=== PATIENT | male | born 1960 | race Caucasian/White ===

== ENCOUNTER 2017-11-09 07:30 | Inpatient (IN) | payer OTHER ==
[~2017-11-09] VITALS: Ht 170.2 cm; Wt 78.3 kg
[2017-11-09 08:42] LABS: Basophils # (auto) 0 uL; Basophils % (auto) 0.5 % (0.0-2.0); Eosinophils # (auto) 0.1 uL; Eosinophils % (auto) 1.7 % (0.0-7.0); Hematocrit 38.2 % (41.0-53.0); Lymphocytes % (auto) 29.4 % (10.0-50.0); Mean Corpuscular Hemoglobin 28.5 pg (28.0-32.0); Mean Corpuscular Hgb Conc. 33.9 g/dL (32.0-36.0); Monocytes # (auto) 0.5 uL; Monocytes % (auto) 7.7 % (0.0-12.0); Neutrophils # (auto) 4.2 uL; Neutrophils % (auto) 60.7 % (37.0-80.0); Nucleated Red Blood Cells % 0.1 %; Platelet Count (auto) 295 10^3/uL (140-450); Red Blood Cells 4.55 10^6/uL (4.5-5.90); Red Cell Distribution Width 13.7 % (11.8-14.3); White Blood Cell 6.9 10^3/uL (4.4-10.8)
[2017-11-09 09:00] LABS: Alanine Aminotransferase 26 U/L (16-61); Albumin 3.6 g/dL (3.4-5.0); Alkaline Phosphatase 86 U/L (45-117); Anion Gap 12 (5-15); Aspartate Aminotransferase 13 U/L (15-37); BUN/Creatinine Ratio 27.3; Bilirubin, Total 0.4 mg/dL (0.2-1.0); Blood Urea Nitrogen 21 mg/dL (7-18); Carbon Dioxide 24 mmol/L (21-32); Chloride 105 mmol/L (98-107); GFR African American 134 mL/min; GFR Non-African American 111 mL/min; Glucose 141 mg/dL (74-106); Potassium 3.8 mmol/L (3.5-5.1); Sodium 141 mmol/L (136-145); Total Protein 7.9 g/dL (6.4-8.2)
[2017-11-09] MEDS ORDERED: ONDANSETRON HCL 4 MG/2 ML VIAL IV ONE (09:15)
[2017-11-09] MEDS ORDERED: MORPHINE SULFATE 4 MG/ML SYR/VIAL IV ONE (09:15)
[2017-11-09] MEDS ORDERED: CLOP75TA41 PO (09:25)
[2017-11-09] MEDS ORDERED: DULO60CA PO (09:25)
[2017-11-09] MEDS ORDERED: AMLO10TA2 PO (09:25)
[2017-11-09] MEDS ORDERED: ISOS60TA24 PO (09:25)
[2017-11-09] MEDS ORDERED: CARV3.1240 PO (09:25)
[2017-11-09] MEDS ORDERED: METF-372 PO (09:25)
[2017-11-09] MEDS ORDERED: ASPI81CH43 PO (09:25)
[2017-11-09] MEDS ORDERED: ATOR40TA52 PO (09:25)
[2017-11-09] MEDS ORDERED: GLIP-116 PO (09:25)
[2017-11-09] MEDS ORDERED: LISI40TA PO (09:25)
[2017-11-09 09:48] LABS: INR 0.95 (0.9-1.15); Partial Thromboplastin Time 26.8 sec (22.64-33.71); Prothrombin Time 10.3 sec (9.37-12.3)
[2017-11-09] MEDS ORDERED: IOHEXOL 350 MG/ML 100ML IJ ONE (10:23)
[2017-11-09] MEDS ORDERED: MORPHINE SULFATE 4 MG/ML SYR/VIAL IV PRN (12:30)
[2017-11-09] MEDS ORDERED: NITROGLYCERIN 0.4 MG SL TAB SL PRN (12:30)
[2017-11-09] MEDS ORDERED: METOPROLOL TARTRATE 25 MG TAB PO ONE (13:30)
[2017-11-09] MEDS ORDERED: LISINOPRIL 5 MG TAB PO ONE (13:30)
[2017-11-09 16:19] VITALS: BP 132/73
[2017-11-09 16:31] VITALS: BP 132/73
[2017-11-09] MEDS: RIVAROXABAN 15 MG TAB PO SCH (18:52)
[2017-11-09 21:57] VITALS: BP 119/67
[2017-11-09] MEDS: METOPROLOL TARTRATE 25 MG TAB PO SCH (22:18)
[2017-11-10 04:37] VITALS: BP 163/98
[2017-11-10 05:21] VITALS: BP 133/69
[2017-11-10] MEDS: HYDROcodone-ACET 10/325MG TAB PO PRN ×3 (05:37→15:31)
[2017-11-10 08:00] VITALS: BP 157/77
[2017-11-10 09:00] VITALS: BP 157/77
[2017-11-10] MEDS ORDERED: LISINOPRIL 5 MG TAB PO SCH (10:00)
[2017-11-10] MEDS: ASPirin 81 mg TAB PO SCH (10:12)
[2017-11-10] MEDS: METOPROLOL TARTRATE 25 MG TAB PO SCH ×2 (10:13→22:13)
[2017-11-10 13:00] VITALS: BP 153/77
[2017-11-10] MEDS: RIVAROXABAN 15 MG TAB PO SCH (18:30)
[2017-11-10 22:00] VITALS: BP 161/82
[2017-11-10] MEDS ORDERED: DORZOLAMIDE HCL 2% OPTH(EYE) SOL 10ML EACHEYE SCH (22:00)
[2017-11-10] MEDS ORDERED: BRIMONIDINE 0.2% OPTH Soln 5ml EACHEYE SCH (22:00)
[2017-11-10] MEDS ORDERED: LATANOPROST 0.005 % OPTH(EYE) SOL 2.5ML EACHEYE SCH (22:00)
[2017-11-10] MEDS: ATORVASTATIN 20 MG TAB PO SCH (22:13)
[2017-11-11 05:00] VITALS: BP 144/77
[2017-11-11] MEDS ORDERED: ISOSORBIDE DINITRATE 10 MG TAB PO SCH (06:00)
[2017-11-11 09:00] VITALS: BP 121/63
[2017-11-11] MEDS ORDERED: SERTRALINE HCL 50 MG TAB PO SCH (10:00)
[2017-11-11] MEDS: METOPROLOL TARTRATE 25 MG TAB PO SCH ×2 (10:48→21:06)
[2017-11-11] MEDS: LISINOPRIL 5 MG TAB PO SCH (10:48)
[2017-11-11] MEDS: ASPirin 81 mg TAB PO SCH (10:48)
[2017-11-11] MEDS: PANTOPRAZOLE 40 MG TAB PO SCH (10:49)
[2017-11-11] MEDS: HYDROcodone-ACET 10/325MG TAB PO PRN ×2 (10:59→21:06)
[2017-11-11 13:00] VITALS: BP 154/78
[2017-11-11 17:00] VITALS: BP 130/74
[2017-11-11] MEDS: ATORVASTATIN 20 MG TAB PO SCH (21:04)
[2017-11-11 23:07] VITALS: BP 146/122
[2017-11-12 05:05] VITALS: BP 152/74
[2017-11-12 08:34] VITALS: BP 142/80
[2017-11-12] MEDS ORDERED: ADENOSINE 66 MG in GIVE UN-DILUTED 0 ML IV ONE (10:00)
[2017-11-12] MEDS: PANTOPRAZOLE 40 MG TAB PO SCH (12:02)
[2017-11-12] MEDS: ASPirin 81 mg TAB PO SCH (12:03)
[2017-11-12] MEDS: LISINOPRIL 5 MG TAB PO SCH (12:04)
[2017-11-12] MEDS: METOPROLOL TARTRATE 25 MG TAB PO SCH ×2 (12:04→21:06)
[2017-11-12] MEDS: HYDROcodone-ACET 10/325MG TAB PO PRN ×2 (12:05→21:06)
[2017-11-12 12:40] VITALS: BP 129/81
[2017-11-12 16:48] VITALS: BP 134/62
[2017-11-12] MEDS: ATORVASTATIN 20 MG TAB PO SCH (21:06)
[2017-11-12 21:25] VITALS: BP 149/82
[2017-11-13 05:12] VITALS: BP 122/64
[2017-11-13] MEDS: HYDROcodone-ACET 10/325MG TAB PO PRN (05:15)
[2017-11-13 08:00] VITALS: BP 131/71
[2017-11-13 08:58] VITALS: BP 131/71
[2017-11-13] MEDS: METOPROLOL TARTRATE 25 MG TAB PO SCH (10:00)
[2017-11-13] MEDS: ASPirin 81 mg TAB PO SCH (10:08)
[2017-11-13] MEDS: LISINOPRIL 5 MG TAB PO SCH (10:09)
[2017-11-13] MEDS: PANTOPRAZOLE 40 MG TAB PO SCH (10:09)
[2017-11-13 13:00] VITALS: BP 132/74
[2017-11-13 14:07] VITALS: BP 132/74
== END 2017-11-13 16:22 | disposition home or self-care (01) | DRG 303 ==
LOC: ER 07:30 → TELE 07:31 → TELE-E-ADS 15:29 → EAST 11-10 00:25 → TELE-E-ADS 11-12 01:03
PROVIDERS: ADMIT Internal Medicine; ATTEND Internal Medicine
DX: I25.10 Atherosclerotic heart disease of native coronary artery without angina pectoris (principal); E11.9 Type 2 diabetes mellitus without complications; E78.00 Pure hypercholesterolemia, unspecified; I10 Essential (primary) hypertension; Z86.73 Personal history of transient ischemic attack (TIA), and cerebral infarction without residual deficits; I25.2 Old myocardial infarction; Z79.4 Long term (current) use of insulin; Z95.5 Presence of coronary angioplasty implant and graft
CPT/HCPCS: 36415; 71046; 71275; 80053; 84484; 85025; 85379; 85610; 85730; 93005; 93017; 93970; 94761; 96374; 96375; J0153; J2405

== ENCOUNTER 2017-12-02 16:08 | Inpatient (IN) | payer OTHER ==
[~2017-12-02] VITALS: Ht 162.6 cm; Wt 68.0 kg
[~2017-12-02 16:08] MED LIST: AMLO10TA2 PO; ASPI81CH43 PO; ATOR40TA52 PO; CARV3.1240 PO; CLOP75TA41 PO; DULO60CA PO; GLIP-116 PO; ISOS60TA24 PO; LISI40TA PO; METF-372 PO
[2017-12-02] MEDS ORDERED: SODIUM CHLORIDE 0.9% 1,000 ML IV ONE (16:25)
[2017-12-02] MEDS ORDERED: ONDANSETRON HCL 4 MG/2 ML VIAL IV ONE (16:30)
[2017-12-02] MEDS ORDERED: MORPHINE SULFATE 8mg/ml INJ SDV IV ONE (16:30)
[2017-12-02 17:11] LABS: Basophils # (auto) 0.1 uL; Basophils % (auto) 0.8 % (0.0-2.0); Eosinophils # (auto) 0.2 uL; Eosinophils % (auto) 2.7 % (0.0-7.0); Hematocrit 37.1 % (41.0-53.0); Hemoglobin 12.5 g/dL (13.5-17.5); Lymphocytes # (auto) 2.5 uL; Lymphocytes % (auto) 29.8 % (10.0-50.0); Mean Corpuscular Hemoglobin 28.3 pg (28.0-32.0); Mean Corpuscular Hgb Conc. 33.8 g/dL (32.0-36.0); Mean Corpuscular Volume 83.7 fL (80.0-100.0); Monocytes # (auto) 0.7 uL; Neutrophils % (auto) 58.7 % (37.0-80.0); Nucleated Red Blood Cells % 0.1 %; Platelet Count (auto) 292 10^3/uL (140-450); Red Blood Cells 4.43 10^6/uL (4.5-5.90); Red Cell Distribution Width 14.1 % (11.8-14.3); White Blood Cell 8.5 10^3/uL (4.4-10.8)
[2017-12-02] MEDS ORDERED: HYDROmorphone HCL 2 MG/ML VL IV ONE (17:15)
[2017-12-02 17:28] LABS: Alanine Aminotransferase 26 U/L (16-61); Albumin 3.5 g/dL (3.4-5.0); Anion Gap 10 (5-15); Aspartate Aminotransferase 11 U/L (15-37); BUN/Creatinine Ratio 21.4; Blood Urea Nitrogen 18 mg/dL (7-18); Calcium 8.9 mg/dL (8.5-10.1); Carbon Dioxide 24 mmol/L (21-32); Chloride 107 mmol/L (98-107); GFR African American 122 mL/min; GFR Non-African American 100 mL/min; Glucose 145 mg/dL (74-106); Sodium 141 mmol/L (136-145)
[2017-12-02 17:31] LABS: INR 0.91 (0.9-1.15); Partial Thromboplastin Time 28.3 sec (23.78-33.04); Prothrombin Time 9.8 sec (9.27-12.13)
[2017-12-02 17:33] LABS: Alkaline Phosphatase 86 U/L (45-117); Bilirubin, Total 0.2 mg/dL (0.2-1.0)
[2017-12-02] MEDS ORDERED: MORPHINE SULFATE 8mg/ml INJ SDV IV PRN (19:30)
[2017-12-02] MEDS ORDERED: ZOLPIDEM TARTRATE 5 MG TAB PO PRN (19:30)
[2017-12-02] MEDS ORDERED: ONDANSETRON HCL 4 MG/2 ML VIAL IV PRN (19:30)
[2017-12-02] MEDS: CARVEDILOL 3.125 MG TAB PO SCH (22:00)
[2017-12-02 22:46] VITALS: BP 161/75
[2017-12-02] MEDS: HYDROmorphone HCL 2 MG/ML VL IV PRN (23:18)
[2017-12-02 23:38] VITALS: BP 169/71
[2017-12-03 05:00] VITALS: BP 144/83
[2017-12-03] MEDS: HYDROmorphone HCL 2 MG/ML VL IV PRN (08:48)
[2017-12-03 08:53] VITALS: BP 148/86
[2017-12-03] MEDS ORDERED: DEXTROSE (50%) 50ML SYRG IV PRN (09:00)
[2017-12-03] MEDS: CLOPIDOGREL BISULFATE 75 MG TAB PO SCH (10:44)
[2017-12-03] MEDS: ISOSORBIDE MONONITRATE 60 MG TAB PO SCH (10:45)
[2017-12-03] MEDS: amLODIPine BESYLATE 5 MG TAB PO SCH (10:46)
[2017-12-03] MEDS: CARVEDILOL 3.125 MG TAB PO SCH ×2 (10:47→21:47)
[2017-12-03] MEDS: ASPirin 81 mg TAB PO SCH (10:48)
[2017-12-03] MEDS: LISINOPRIL 20 MG TAB PO SCH (10:48)
[2017-12-03] MEDS: DULoxetine HCL 30 MG CAP PO SCH (10:49)
[2017-12-03] MEDS: NITROGLYCERIN 2% OINT 1GM PKG TD SCH (10:50)
[2017-12-03 11:52] VITALS: BP 169/81
[2017-12-03] MEDS: InsuLIN REG 1unit/0.01ml Soln (100units/ml) SC SCH ×2 (12:13→21:46)
[2017-12-03] MEDS: ACCU-CHEK COMFORT CURVE STRIP VI SCH ×2 (12:13→21:46)
[2017-12-03] MEDS: NITROGLYCERIN 0.4 MG SL TAB SL PRN ×3 (13:59→14:09)
[2017-12-03] MEDS: CYCLOBENZAPRINE HCL 10 MG TAB PO SCH ×2 (14:06→21:46)
[2017-12-03 17:24] VITALS: BP 147/79
[2017-12-03] MEDS: traMADol HCL 50 MG TAB PO PRN (17:32)
[2017-12-03 20:00] VITALS: BP 139/67
[2017-12-04 04:54] VITALS: BP 154/82
[2017-12-04] MEDS: CYCLOBENZAPRINE HCL 10 MG TAB PO SCH ×2 (05:50→14:37)
[2017-12-04] MEDS: traMADol HCL 50 MG TAB PO PRN (05:56)
[2017-12-04 09:41] VITALS: BP 147/85
[2017-12-04] MEDS: NITROGLYCERIN 2% OINT 1GM PKG TD SCH (11:11)
[2017-12-04] MEDS: DULoxetine HCL 30 MG CAP PO SCH (11:12)
[2017-12-04] MEDS: ISOSORBIDE MONONITRATE 60 MG TAB PO SCH (11:12)
[2017-12-04] MEDS: amLODIPine BESYLATE 5 MG TAB PO SCH (11:13)
[2017-12-04] MEDS: CARVEDILOL 3.125 MG TAB PO SCH (11:13)
[2017-12-04] MEDS: LISINOPRIL 20 MG TAB PO SCH (11:14)
[2017-12-04] MEDS: CLOPIDOGREL BISULFATE 75 MG TAB PO SCH (11:14)
[2017-12-04] MEDS: ASPirin 81 mg TAB PO SCH (11:14)
[2017-12-04] MEDS: ACCU-CHEK COMFORT CURVE STRIP VI SCH (11:58)
[2017-12-04] MEDS: InsuLIN REG 1unit/0.01ml Soln (100units/ml) SC SCH (13:09)
[2017-12-04 13:23] VITALS: BP 146/73
== END 2017-12-04 16:00 | DRG 303 ==
LOC: EDUNIT# 16:08 → ER 16:08 → EDBD 16:08 → TELE 16:09 → EEVIPCON 16:09 → TELE-E-ADS 21:47
PROVIDERS: ADMIT Internal Medicine; ATTEND Internal Medicine
DX: I25.110 Atherosclerotic heart disease of native coronary artery with unstable angina pectoris (principal); I25.2 Old myocardial infarction; E11.9 Type 2 diabetes mellitus without complications; E78.00 Pure hypercholesterolemia, unspecified; I49.3 Ventricular premature depolarization; F32.9 Major depressive disorder, single episode, unspecified; F10.20 Alcohol dependence, uncomplicated; I10 Essential (primary) hypertension; Z79.4 Long term (current) use of insulin; Z86.73 Personal history of transient ischemic attack (TIA), and cerebral infarction without residual deficits; Z95.5 Presence of coronary angioplasty implant and graft; Z88.5 Allergy status to narcotic agent; Z79.899 Other long term (current) drug therapy; Z90.49 Acquired absence of other specified parts of digestive tract; Z90.89 Acquired absence of other organs
CPT/HCPCS: 36415; 71045; 80053; 82962; 83735; 83880; 84484; 85025; 85610; 85730; 87081; 93005; 94761; 96361; 96374; 96375; J1815; J2405

== ENCOUNTER 2018-04-10 13:02 | Inpatient (IN) | payer OTHER ==
[~2018-04-10] VITALS: Ht 167.6 cm; Wt 72.8 kg
[~2018-04-10 13:02] MED LIST changes: +AMLO10TA12 PO; -AMLO10TA2 PO
[2018-04-10] MEDS ORDERED: SODIUM CHLORIDE 0.9% 1,000 ML IV ONE (13:10)
[2018-04-10] MEDS ORDERED: ASPirin 81 mg TAB PO ONE (13:15)
[2018-04-10] MEDS ORDERED: NITROGLYCERIN 0.4 MG SL TAB SL ONE (13:15)
[2018-04-10] MEDS ORDERED: ONDANSETRON HCL 4 MG/2 ML VIAL IV ONE (13:15)
[2018-04-10 14:29] LABS: Basophils # (auto) 0 uL; Basophils % (auto) 0.5 % (0.0-2.0); Eosinophils # (auto) 0.1 uL; Eosinophils % (auto) 1.4 % (0.0-7.0); Hematocrit 41.3 % (41.0-53.0); Hemoglobin 13.5 g/dL (13.5-17.5); Lymphocytes # (auto) 2.5 uL; Lymphocytes % (auto) 32.7 % (10.0-50.0); Mean Corpuscular Hemoglobin 27.8 pg (28.0-32.0); Mean Corpuscular Hgb Conc. 32.7 g/dL (32.0-36.0); Monocytes # (auto) 0.6 uL; Monocytes % (auto) 8.2 % (0.0-12.0); Neutrophils # (auto) 4.5 uL; Neutrophils % (auto) 57.2 % (37.0-80.0); Nucleated Red Blood Cells % 0.1 %; Platelet Count (auto) 275 10^3/uL (140-450); Red Blood Cells 4.85 10^6/uL (4.5-5.90); Red Cell Distribution Width 14.4 % (11.8-14.3); White Blood Cell 7.8 10^3/uL (4.4-10.8)
[2018-04-10 14:42] LABS: INR 0.94 (0.9-1.15); Partial Thromboplastin Time 28.5 sec (23.78-33.04); Prothrombin Time 10.1 sec (9.27-12.13)
[2018-04-10 14:45] LABS: Albumin 3.5 g/dL (3.4-5.0); Anion Gap 9 (5-15); Blood Urea Nitrogen 15 mg/dL (7-18); Carbon Dioxide 23 mmol/L (21-32); Chloride 112 mmol/L (98-107); Potassium 3.9 mmol/L (3.5-5.1); Sodium 144 mmol/L (136-145)
[2018-04-10 14:48] LABS: Alanine Aminotransferase 32 U/L (16-61); Aspartate Aminotransferase 15 U/L (15-37); BUN/Creatinine Ratio 18.8; Bilirubin, Total 0.2 mg/dL (0.2-1.0); Calcium 8.5 mg/dL (8.5-10.1); GFR African American 128 mL/min; GFR Non-African American 106 mL/min; Total Protein 7.7 g/dL (6.4-8.2)
[2018-04-10 14:51] LABS: Alkaline Phosphatase 86 U/L (45-117)
[2018-04-10 15:26] LABS: Glucose 49 mg/dL (74-106)
[2018-04-10] MEDS: MORPHINE SULFATE 4 MG/ML SYR/VIAL IV PRN ×2 (15:49→20:38)
[2018-04-10] MEDS ORDERED: MORPHINE SULFATE 4 MG/ML SYR/VIAL IV PRN (17:30)
[2018-04-10] MEDS ORDERED: DEXTROSE (50%) 50ML SYRG IV PRN (17:45)
[2018-04-10] MEDS: InsuLIN REG 1unit/0.01ml Soln (100units/ml) SC SCH (18:00)
[2018-04-10] MEDS: ACCU-CHEK COMFORT CURVE STRIP VI SCH (18:14)
[2018-04-10 20:03] VITALS: BP 163/84
[2018-04-10 20:48] VITALS: BP 163/84
[2018-04-10 21:42] VITALS: BP 163/83
[2018-04-11] VITALS (7 sets, daily range): BP systolic 133–160; BP diastolic 66–94
[2018-04-11] MEDS: MORPHINE SULFATE 4 MG/ML SYR/VIAL IV PRN ×4 (00:32→17:24)
[2018-04-11] MEDS: ACCU-CHEK COMFORT CURVE STRIP VI SCH ×5 (05:59→23:17)
[2018-04-11] MEDS: InsuLIN REG 1unit/0.01ml Soln (100units/ml) SC SCH ×5 (06:00→23:18)
[2018-04-11] MEDS ORDERED: ADENOSINE 61 MG in GIVE UN-DILUTED 0 ML IV STA (08:28)
[2018-04-11] MEDS: DULoxetine HCL 30 MG CAP PO SCH (08:46)
[2018-04-11] MEDS: PANTOPRAZOLE 40 MG TAB PO SCH (08:47)
[2018-04-11] MEDS: ASPirin 81 mg TAB PO SCH (08:47)
[2018-04-11] MEDS: OXcarbazepine 300 MG TAB PO SCH ×2 (08:47→21:59)
[2018-04-11] MEDS: CLOPIDOGREL BISULFATE 75 MG TAB PO SCH (08:47)
[2018-04-11] MEDS: ISOSORBIDE MONONITRATE 60 MG TAB PO SCH (08:48)
[2018-04-11] MEDS: CARVEDILOL 3.125 MG TAB PO SCH ×3 (09:36→21:59)
[2018-04-11] MEDS ORDERED: BARIUM SULFATE 98% 340 GM PWDR ONE (09:36)
[2018-04-11] MEDS ORDERED: EZ-GAS II GRANULES (RADIOLOGY USE) PO ONE (09:50)
[2018-04-11] MEDS: amLODIPine BESYLATE 5 MG TAB PO SCH (10:00)
[2018-04-11] MEDS: glipiZIDE 5 MG TAB PO SCH (17:32)
[2018-04-11] MEDS: metFORMIN HYDROCHLORIDE 500 MG TAB PO SCH (17:33)
[2018-04-11] MEDS ORDERED: ATORVASTATIN 20 MG TAB PO SCH (22:00)
[2018-04-11] MEDS ORDERED: traZODone HCL 50 MG TAB PO SCH (22:00)
[2018-04-11] MEDS: NITROGLYCERIN 0.4 MG SL TAB SL PRN ×2 (23:12→23:20)
[2018-04-12] MEDS: NITROGLYCERIN 0.4 MG SL TAB SL PRN (00:10)
[2018-04-12] MEDS: MORPHINE SULFATE 4 MG/ML SYR/VIAL IV PRN (00:32)
[2018-04-12 05:00] VITALS: BP 107/71
[2018-04-12] MEDS: InsuLIN REG 1unit/0.01ml Soln (100units/ml) SC SCH (06:00)
[2018-04-12] MEDS: ACCU-CHEK COMFORT CURVE STRIP VI SCH (06:44)
[2018-04-12] MEDS: metFORMIN HYDROCHLORIDE 500 MG TAB PO SCH (07:00)
[2018-04-12] MEDS: glipiZIDE 5 MG TAB PO SCH (07:20)
[2018-04-12 08:33] VITALS: BP 105/69
[2018-04-12 09:00] VITALS: BP 156/84
[2018-04-12] MEDS: ISOSORBIDE MONONITRATE 60 MG TAB PO SCH (10:00)
[2018-04-12] MEDS: CLOPIDOGREL BISULFATE 75 MG TAB PO SCH (10:00)
[2018-04-12] MEDS: amLODIPine BESYLATE 5 MG TAB PO SCH (10:00)
[2018-04-12] MEDS: ASPirin 81 mg TAB PO SCH (10:00)
[2018-04-12] MEDS: PANTOPRAZOLE 40 MG TAB PO SCH (10:00)
[2018-04-12] MEDS: CARVEDILOL 3.125 MG TAB PO SCH (10:00)
[2018-04-12] MEDS: OXcarbazepine 300 MG TAB PO SCH (10:00)
[2018-04-12] MEDS: DULoxetine HCL 30 MG CAP PO SCH (10:00)
== END 2018-04-12 10:15 | DRG 206 ==
LOC: EDBD 13:02 → EEVIPCON 13:05 → ER 13:05 → TELE 13:06 → TELE-E-ADS 19:15
PROVIDERS: ADMIT Internal Medicine; ATTEND Internal Medicine
DX: M94.0 Chondrocostal junction syndrome [Tietze] (principal); I25.10 Atherosclerotic heart disease of native coronary artery without angina pectoris; I48.91 Unspecified atrial fibrillation; E11.9 Type 2 diabetes mellitus without complications; E78.00 Pure hypercholesterolemia, unspecified; I10 Essential (primary) hypertension; I25.2 Old myocardial infarction; Z86.73 Personal history of transient ischemic attack (TIA), and cerebral infarction without residual deficits; Z79.4 Long term (current) use of insulin; I70.0 Atherosclerosis of aorta; Z90.49 Acquired absence of other specified parts of digestive tract; Z95.5 Presence of coronary angioplasty implant and graft; F32.9 Major depressive disorder, single episode, unspecified; Z99.3 Dependence on wheelchair; Z88.6 Allergy status to analgesic agent; Z79.82 Long term (current) use of aspirin; Z79.899 Other long term (current) drug therapy; F17.210 Nicotine dependence, cigarettes, uncomplicated
CPT/HCPCS: 36415; 71045; 74247; 78452; 80053; 82962; 83880; 84484; 85025; 85610; 85730; 87081; 93005; 93017; 96374; 96375; J0153; J1815; J2405

== ENCOUNTER 2018-04-13 19:11 | Emergency (ER) | payer OTHER ==
[~2018-04-13] VITALS: Ht 172.7 cm; Wt 68.0 kg
[~2018-04-13 19:11] MED LIST changes: -METF-372 PO
[2018-04-13 19:57] LABS: Basophils # (auto) 0 uL; Basophils % (auto) 0.8 % (0.0-2.0); Eosinophils # (auto) 0.1 uL; Eosinophils % (auto) 1.9 % (0.0-7.0); Hematocrit 38.2 % (41.0-53.0); Hemoglobin 12.8 g/dL (13.5-17.5); Lymphocytes # (auto) 2.9 uL; Lymphocytes % (auto) 44.5 % (10.0-50.0); Mean Corpuscular Hemoglobin 27.8 pg (28.0-32.0); Mean Corpuscular Hgb Conc. 33.4 g/dL (32.0-36.0); Mean Corpuscular Volume 83.3 fL (80.0-100.0); Monocytes # (auto) 0.5 uL; Monocytes % (auto) 8.1 % (0.0-12.0); Neutrophils # (auto) 2.9 uL; Neutrophils % (auto) 44.7 % (37.0-80.0); Nucleated Red Blood Cells % 0.1 %; Platelet Count (auto) 281 10^3/uL (140-450); Red Blood Cells 4.59 10^6/uL (4.5-5.90); Red Cell Distribution Width 14.5 % (11.8-14.3); White Blood Cell 6.4 10^3/uL (4.4-10.8)
[2018-04-13 20:14] LABS: Albumin 3.5 g/dL (3.4-5.0); Anion Gap 8 (5-15); BUN/Creatinine Ratio 23.6; Blood Urea Nitrogen 17 mg/dL (7-18); Calcium 8.5 mg/dL (8.5-10.1); Carbon Dioxide 24 mmol/L (21-32); Chloride 112 mmol/L (98-107); GFR African American 145 mL/min; GFR Non-African American 120 mL/min; Glucose 68 mg/dL (74-106); Magnesium 2.1 mg/dL (1.6-2.6); Potassium 3.6 mmol/L (3.5-5.1); Sodium 144 mmol/L (136-145)
[2018-04-13 20:26] LABS: Alanine Aminotransferase 24 U/L (16-61); Alkaline Phosphatase 79 U/L (45-117); Aspartate Aminotransferase 11 U/L (15-37); Bilirubin, Total 0.2 mg/dL (0.2-1.0); Total Protein 7.3 g/dL (6.4-8.2)
[2018-04-13 21:40] VITALS: BP 138/76
== END 2018-04-13 21:45 | disposition home or self-care (01) ==
LOC: EEVIPCON 19:11 → EDBD 19:11 → EDSEX 19:11 → ER 19:11
DX: R07.89 Other chest pain (principal); E11.9 Type 2 diabetes mellitus without complications; I25.2 Old myocardial infarction; I10 Essential (primary) hypertension; F17.210 Nicotine dependence, cigarettes, uncomplicated; Z88.6 Allergy status to analgesic agent; Z79.899 Other long term (current) drug therapy
CPT/HCPCS: 36415; 71045; 80053; 83735; 84484; 85025; 93005; 94761

== ENCOUNTER 2018-07-29 14:58 | Emergency (ER) | payer OTHER ==
[~2018-07-29] VITALS: Ht 175.3 cm; Wt 68.0 kg
[2018-07-29 16:31] LABS: Basophils # (auto) 0.1 uL; Eosinophils # (auto) 0.7 uL; Eosinophils % (auto) 10.2 % (0.0-7.0); Hematocrit 36.3 % (41.0-53.0); Lymphocytes # (auto) 2.1 uL; Lymphocytes % (auto) 29.6 % (10.0-50.0); Mean Corpuscular Hemoglobin 28.2 pg (28.0-32.0); Mean Corpuscular Hgb Conc. 33.1 g/dL (32.0-36.0); Mean Corpuscular Volume 85.2 fL (80.0-100.0); Monocytes # (auto) 0.6 uL; Monocytes % (auto) 9.1 % (0.0-12.0); Neutrophils # (auto) 3.5 uL; Neutrophils % (auto) 50.1 % (37.0-80.0); Platelet Count (auto) 267 10^3/uL (140-450); Red Blood Cells 4.25 10^6/uL (4.5-5.90); Red Cell Distribution Width 14.1 % (11.8-14.3)
[2018-07-29 16:39] LABS: Albumin 3.4 g/dL (3.4-5.0); Anion Gap 4 (5-15); Blood Urea Nitrogen 17 mg/dL (7-18); Calcium 8.6 mg/dL (8.5-10.1); Carbon Dioxide 27 mmol/L (21-32); Chloride 110 mmol/L (98-107); Glucose 97 mg/dL (74-106); Magnesium 2.1 mg/dL (1.6-2.6); Potassium 4.3 mmol/L (3.5-5.1); Sodium 141 mmol/L (136-145)
[2018-07-29 16:44] LABS: Alanine Aminotransferase 32 U/L (16-61); Alkaline Phosphatase 69 U/L (45-117); Aspartate Aminotransferase 30 U/L (15-37); Bilirubin, Total 0.2 mg/dL (0.2-1.0); GFR African American 140 mL/min; GFR Non-African American 116 mL/min; Total Protein 7.1 g/dL (6.4-8.2)
[2018-07-29 18:00] VITALS: BP 130/74
== END 2018-07-29 22:22 | disposition home or self-care (01) ==
LOC: EEVIPCON 14:58 → EDBD 14:58 → ER 14:58
DX: R07.89 Other chest pain (principal); R06.02 Shortness of breath; K21.9 Gastro-esophageal reflux disease without esophagitis; E78.5 Hyperlipidemia, unspecified; I25.2 Old myocardial infarction; I11.0 Hypertensive heart disease with heart failure; I50.9 Heart failure, unspecified; F17.210 Nicotine dependence, cigarettes, uncomplicated; Z86.73 Personal history of transient ischemic attack (TIA), and cerebral infarction without residual deficits; Z90.49 Acquired absence of other specified parts of digestive tract; Z88.5 Allergy status to narcotic agent; Z79.82 Long term (current) use of aspirin; Z79.84 Long term (current) use of oral hypoglycemic drugs; Z79.899 Other long term (current) drug therapy; Z98.61 Coronary angioplasty status
CPT/HCPCS: 36415; 71046; 80053; 83735; 84484; 85025; 93005